=== PATIENT | female | born 1965 | race Caucasian/White ===

== ENCOUNTER 2016-12-22 07:34 | Day surgery (SDC) | payer OTHER ==
[2015-03-26 08:18] VITALS: BMI 27.3
[2016-12-22] MEDS ORDERED: Propofol 10 mg/ml Inj (20 ML) ONE ×2 (09:20→09:33)
[2016-12-22] MEDS ORDERED: Lidocaine Hydrochloride 5 ML INJ ONE (09:20)
--- NOTE | 2016-12-22 09:25 | CP.SDSHP ---
Same Day Surgery H & P - History Proposed Procedure: COLONSCOPY Pre-Op Diagnosis: SEE NOTES - Previous Medical/Surgical History Cardiac: Hypertension Endocrine/Metabolic: Diabetes, Other Misc: Other Pain: 4.Moderate Pain - Allergies Allergies: Allergies No Known Allergies Allergy (Verified 12/22/16 08:03) - Physical Exam General Appearance: N Vital Signs: Vital Signs 12/22/16 08:00 Temperature 97.5 F L Pulse Rate 61 Respiratory 19 Rate Blood Pressure 132/74 O2 Sat by Pulse 99 Oximetry Mental Status: Alert & Oriented x3 Neuro: WNL Heart: Other Lungs: WNL GI: WNL - {Optional Preform as Required} Breast: WNL Abdomen: Other Rectal: WNL Integument: WNL : WNL Ortho: WNL ENT: WNL - Impression Pt. Evaluated Today:Candidate for Anesthesia & Procedure: Yes - Date & Time Time: 09:25 Short Stay Discharge - Short Stay Discharge Admitting Diagnosis/Reason for Visit: COLON SCREEN Disposition: HOME/ ROUTINE
[2016-12-22] MEDS ORDERED: Belladonna-Phenobarbital PO STA (09:34)
[2016-12-22 10:13] VITALS: TEMP 97.8; O2SAT 100
[2016-12-22 14:36] VITALS: PULSE 56
[2016-12-22 14:37] VITALS: BP 112/72; RESP 17
== END 2016-12-22 11:00 | disposition home or self-care (01) ==
LOC: C.ENDO 07:34
PROVIDERS: ATTEND Specialist
DX: Z12.11 Encounter for screening for malignant neoplasm of colon (principal); K58.9 Irritable bowel syndrome, unspecified; K64.4 Residual hemorrhoidal skin tags; K64.8 Other hemorrhoids; K52.9 Noninfective gastroenteritis and colitis, unspecified
CPT/HCPCS: 45380; 82948; 84703; 88305; J2704